=== PATIENT | male | born 1985 | race Caucasian/White ===

== ENCOUNTER 2016-09-19 16:20 | Emergency (ER) | payer OTHER ==
[~2016-09-19] VITALS: Ht 172.7 cm; Wt 87.3 kg
[2016-09-19 17:21] LABS: HEMATOCRIT 43.5 % (38.0-50.0); MCH 29.7 PG (29.0-34.0); MCHC 33.3 G/DL (30.0-36.0); MCV 89.1 FL (86-99); MEAN PLAT.VOLUME 8.9 uM^3 (9.0-12.4); PLATELET COUNT 268 K/uL (156-360); RBC DIS.WIDTH-CV 12.9 % (11.8-14.6); RBC DIS.WIDTH-SD 42.2 % (39-53); RED BLOOD COUNT 4.88 M/uL (4.00-5.50); WHITE BLOOD COUNT 6.6 K/uL (4.1-10.2)
[2016-09-19 17:36] LABS: CHLORIDE 104 mEq/L (99-109); POTASSIUM 4.1 mEq/L (3.7-5.4); SODIUM 138 mEq/L (136-147)
[2016-09-19 17:38] LABS: GLUCOSE 106 mg/dL (70-99)
[2016-09-19 17:39] LABS: ANION GAP 7 MEQ/L (2-14)
[2016-09-19 17:40] LABS: TOTAL BILIRUBIN 0.6 mg/dL (0.0-1.0)
[2016-09-19 17:41] LABS: ALKALINE PHOSPHATASE 109 IU/L (3-129)
[2016-09-19 17:42] LABS: GFR ESTIMATE (CALCULATED) > 59 mL/min/
[2016-09-19 17:43] LABS: UREA NITROGEN (BUN) 11 mg/dL (9-23)
[2016-09-19 18:05] VITALS: BP 134/75
== END 2016-09-19 18:16 | disposition home or self-care (01) ==
LOC: EME 16:20
PROVIDERS: Nurse Practitioner Family
DX: Z77.21 Contact with and (suspected) exposure to potentially hazardous body fluids (principal); Y99.0 Civilian activity done for income or pay
CPT/HCPCS: 80053; 85027; 99281; 99283